=== PATIENT | male | born 1960 | race Caucasian/White ===

== ENCOUNTER → 2022-05-07 08:38 | Outpatient (BNVA) | payer OTHER, SELFPAY | PROVIDERS: Visit Provider Family Medicine | DX: E06.3 Autoimmune thyroiditis (principal); L40.9 Psoriasis, unspecified; Z76.89 Persons encountering health services in other specified circumstances; Z12.5 Encounter for screening for malignant neoplasm of prostate | CPT/HCPCS: 80053; 80061; 84153; 84439; 84443; 85025 ==

== ENCOUNTER → 2022-12-24 09:38 | Outpatient (BNVA) | payer OTHER, SELFPAY | PROVIDERS: Visit Provider Family Medicine | DX: L40.9 Psoriasis, unspecified (principal); Z12.11 Encounter for screening for malignant neoplasm of colon; E06.3 Autoimmune thyroiditis; Z79.620 Long term (current) use of immunosuppressive biologic | CPT/HCPCS: 80048; 84439; 84443; 84481; 85025 ==

== ENCOUNTER 2023-11-11 06:00 | Outpatient (CLI) | payer OTHER, SELFPAY | END 2023-11-11 06:01 | disposition home or self-care (01) | LOC: SLEEP 12-12 09:29 | PROVIDERS: PCP Family Medicine; Visit Provider Family Medicine | DX: E55.9 Vitamin D deficiency, unspecified (principal); L40.9 Psoriasis, unspecified; Z79.620 Long term (current) use of immunosuppressive biologic; I10 Essential (primary) hypertension; E06.3 Autoimmune thyroiditis; Z12.5 Encounter for screening for malignant neoplasm of prostate | CPT/HCPCS: 80053; 80061; 82306; 83721; 84439; 84443; 85025; G0103 ==

== ENCOUNTER → 2023-11-20 10:25 | Outpatient (BNVA) | payer OTHER, SELFPAY | PROVIDERS: PCP Family Medicine; Visit Provider Physician Assistant | DX: M25.551 Pain in right hip (principal); M70.61 Trochanteric bursitis, right hip | CPT/HCPCS: 73502 ==

== ENCOUNTER → 2023-11-25 08:48 | Outpatient (BNVA) | payer OTHER, SELFPAY | PROVIDERS: PCP Family Medicine; Visit Provider Family Medicine | DX: I10 Essential (primary) hypertension (principal); R79.89 Other specified abnormal findings of blood chemistry | CPT/HCPCS: 80053 ==

== ENCOUNTER → 2024-05-02 14:34 | Outpatient (BNVA) | payer OTHER, SELFPAY | PROVIDERS: PCP Family Medicine; Visit Provider Emergency Medicine | DX: M23.91 Unspecified internal derangement of right knee (principal) | CPT/HCPCS: 73562 ==

== ENCOUNTER 2024-05-12 14:53 | Outpatient (CLI) | payer OTHER, SELFPAY | END 2024-05-12 14:54 | disposition home or self-care (01) | LOC: SLEEP 14:54 | PROVIDERS: PCP Family Medicine; Visit Provider Family Medicine | DX: G47.33 Obstructive sleep apnea (adult) (pediatric) (principal); G47.36 Sleep related hypoventilation in conditions classified elsewhere | CPT/HCPCS: G0399 ==

== ENCOUNTER → 2024-06-25 08:36 | Outpatient (BNVA) | payer OTHER, SELFPAY | PROVIDERS: PCP Family Medicine; Visit Provider Family Medicine | DX: E78.5 Hyperlipidemia, unspecified (principal); E03.9 Hypothyroidism, unspecified | CPT/HCPCS: 80053; 80061; 84439; 84443 ==

== ENCOUNTER 2024-08-17 07:41 | Day surgery (SDC) | payer OTHER, SELFPAY ==
[2024-08-17 07:56] VITALS: BP 136/82; PULSE 64; RESP 16; TEMP 36.1; O2SAT 96
[2024-08-17] MEDS: sodium chloride 0.9% 1,000 ML 15 ML IV (08:09)
--- NOTE | 2024-08-17 08:10 | ANES.PREANE2 ---
Pre-Anesthetic Assessment Height/Weight: Height 1.78 m Weight 113.398 kg Temp Pulse Resp BP Pulse Ox O2 Del Method 97.0 F L 64 16 136/82 96 Room Air 08/17/24 07:56 08/17/24 07:56 08/17/24 07:56 08/17/24 07:56 08/17/24 07:56 08/17/24 07:56 Preop Diagnosis: Screen Operation Date: 08/17/24 09:00 Proposed Procedures p Colonoscopy 31623, G0121, Z12.11(Not Applicable) - Francois Washington MD Familial anesthetic complications: none Was Beta Rodolfo taken within 24 hours: N/A Was Clonidine taken within 24 hours: N/A Last intake: Intake Last Liquid Date 08/16/24 Last Liquid Time 20:00 Last Solid Date 08/15/24 Last Solid Time 18:30 Social Alcohol (1-2/month) and No tobacco Exam alert, oriented x 3, clear to auscultation bilaterally and regular rate & rhythm Airway Cervical ROM: within normal limits Mallampati: Class II Dentition: full Pulmonary Sleep Apnea CV/HEM Hypertension None reported Hepatic None reported GI None reported Metabolic Morbid Obesity and Thyroid Disease (hypothyroid) Musc/skel psoriasis Neuropsych None reported Anesthetic Plan ASA status: 2 Anesthesia: MAC Risk of > 500 ml blood loss (7ml/kg in children): No Medications/Allergies Home Medications ?Medication ?Instructions ?Recorded ?Confirmed ?Last Taken ?Type betamethasone dipropionate 0.05 % 1 applic topical DAILY PRN skin 12/24/22 08/12/24 Unknown Rx topical cream irritation #45 grams amlodipine 10 mg tablet 10 mg PO DAILY #90 tabs 11/11/23 08/12/24 08/17/24 Rx CPAP 6-16 cm mmHg setting with #1 ea 06/25/24 07/09/24 Unknown Rx mask, tubing and supplies levothyroxine 25 mcg tablet 25 mcg PO DAILY #90 tabs 06/28/24 08/12/24 08/17/24 Rx adalimumab 40 mg/0.8 mL 40 mg SUBCUT .[id number] 08/12/24 08/12/24 07/30/24 History subcutaneous syringe kit (Humira) Allergies Allergy/AdvReac Type Severity Reaction Status Date / Time No Known Allergies Allergy Verified 08/12/24 08:15 Current Medications Generic Name Dose Route Start Last Admin Trade Name Freq PRN Reason Stop Dose Admin Sodium Chloride 1,000 mls @ 15 mls/hr 08/17/24 07:44 08/17/24 08:09 Sodium Chloride 0.9% IV 08/18/24 07:43 15 mls/hr .Q24H PRN Administration COLONOSCOPY FLUIDS PFSH Anesthesia Medical History Hyperlipidemia Obesity, Class II, BMI 35-39.9 Psoriasis Sleep apnea Trochanteric bursitis of right hip Acquired hypothyroidism Preston's disease Essential hypertension Adalimumab (Humira) long-term use Family History Father Hypothyroidism Heart disease Mother Hypothyroidism Heart disease Social History Smoking and tobacco/nicotine status: never used tobacco/nicotine Second hand smoke exposure: No Alcohol intake: current Alcohol intake frequency: holidays/special occasions only Substance/Drug Use: never Adopted: No Caregiver/support person: No Lives independently: No Household members: spouse Marital status: Number of children: 1 Highest education level completed: Professional Degree (MD, DO, KORTNEY, DVM, DDS, DPM, etc) service: No Current occupational status: employed Current occupational exposures/hazards: No Pets and animals: No
--- NOTE | 2024-08-17 09:00 | W.PM.OPSFHP ---
Same Day Surgery H&P Indication for Procedure/HPI DATE OF PROCEDURE: August 17, 2024 CHIEF COMPLAINT/INDICATIONFOR SURGICAL PROCEDURE: screening colonoscopy PREOP DIAGNOSIS: Screening colonoscopy PLANNED PROCEDURE: Operation Date: 08/17/24 09:00 Proposed Procedures p Colonoscopy 32460, G0121, Z12.11(Not Applicable) - Francois Washington MD Medications/Allergies* Home Medications ?Medication ?Instructions ?Recorded ?Confirmed ?Type adalimumab 40 mg/0.8 mL 40 mg SUBCUT .S2BABRT 08/12/24 08/12/24 History subcutaneous syringe kit (Humira) Allergies/Adverse Reactions Allergy/AdvReac Type Severity Reaction Status Date / Time No Known Allergies Allergy Verified 08/12/24 08:15 Current Medications: Generic Name Dose Route Start Last Admin Trade Name Freq PRN Reason Stop Dose Admin Sodium Chloride 1,000 mls @ 15 mls/hr 08/17/24 07:44 08/17/24 08:09 Sodium Chloride 0.9% IV 08/18/24 07:43 15 mls/hr .Q24H PRN Administration COLONOSCOPY FLUIDS Pertinent History/Comorbid Conditions* Medical History (Updated 06/25/24 @ 08:30 by Vaughn Major MD) Hyperlipidemia Obesity, Class II, BMI 35-39.9 Psoriasis Sleep apnea Trochanteric bursitis of right hip Acquired hypothyroidism Preston's disease Essential hypertension Adalimumab (Humira) long-term use Family History (Updated 06/25/24 @ 08:02 by Eugenio Maynard LPN) Heart disease Father Mother Hypothyroidism Father Mother Social History Smoking and tobacco/nicotine status: never used tobacco/nicotine Second hand smoke exposure: No Alcohol intake: current Alcohol intake frequency: holidays/special occasions only Substance/Drug Use: never Adopted: No Caregiver/support person: No Lives independently: No Household members: spouse Marital status: Number of children: 1 Highest education level completed: Professional Degree (MD, DO, KORTNEY, DVM, DDS, DPM, etc) service: No Current occupational status: employed Current occupational exposures/hazards: No Pets and animals: No Pertinent Exam Findings alert, oriented x 3, clear to auscultation bilaterally, regular rate & rhythm and procedure specific exam findings abdomen soft, nt, nd Recommendations Risks and benefits of procedure reviewed Surgery/Procedure today Other Plans: Colonoscopy today Coding Level of Care Code Acute Code for Chg Fwd
[2024-08-17 09:28] VITALS: BP 133/68; PULSE 64; RESP 18; TEMP 36.4; O2SAT 92
[2024-08-17 09:37] VITALS: BP 139/78; PULSE 66; RESP 18; O2SAT 97
--- NOTE | 2024-08-17 09:48 | ANE.PACU2 ---
Inpatient post-anesthesia follow up: Airway intact: Yes Vital signs: Temperature 97.6 F Pulse Rate 66 Respiratory Rate 18 Blood Pressure 139/78 Pulse Oximetry 97 Oxygen Delivery Me thod Room Air Oxygen Flow Rate Fraction of Inspir ed Oxygen Hydration adequate: Yes Nausea and vomiting: No Pain level: 1 Mental status: Baseline
== END 2024-08-17 09:48 | disposition home or self-care (01) ==
PROVIDERS: PCP Family Medicine; Visit Provider Student in an Organized Health Care Education/Training Program
PROC: 0DJD8ZZ Inspection of Lower Intestinal Tract, Via Natural or Artificial Opening Endoscopic (ICD-10-PCS; CPT 45378; principal; 2024-08-17 09:00)
DX: Z12.11 Encounter for screening for malignant neoplasm of colon (principal); I10 Essential (primary) hypertension; E78.5 Hyperlipidemia, unspecified; E06.3 Autoimmune thyroiditis; E03.9 Hypothyroidism, unspecified; E66.812 Obesity, class 2; E66.01 Morbid (severe) obesity due to excess calories; Z68.35 Body mass index [BMI] 35.0-35.9, adult; Z79.899 Other long term (current) drug therapy; Z79.890 Hormone replacement therapy; Z79.620 Long term (current) use of immunosuppressive biologic
CPT/HCPCS: 45378; J2704; J7030

== ENCOUNTER → 2024-10-05 07:29 | Outpatient (BNVA) | payer MEDICARE, OTHER, SELFPAY | PROVIDERS: PCP Family Medicine; Visit Provider Nurse Practitioner | DX: M25.551 Pain in right hip (principal); M70.61 Trochanteric bursitis, right hip; M16.11 Unilateral primary osteoarthritis, right hip | CPT/HCPCS: 20610; 73502; 99204; J1100; J2795; J3301; J9999 ==

== ENCOUNTER → 2025-01-21 07:55 | Outpatient (BNVA) | payer MEDICARE, OTHER, SELFPAY | PROVIDERS: PCP Family Medicine; Visit Provider Nurse Practitioner | DX: M16.11 Unilateral primary osteoarthritis, right hip (principal); M70.61 Trochanteric bursitis, right hip | CPT/HCPCS: 99213 ==

== ENCOUNTER → 2025-01-28 12:40 | Outpatient (BNVA) | payer MEDICARE, OTHER, SELFPAY | PROVIDERS: PCP Family Medicine; Visit Provider Specialist | DX: M16.11 Unilateral primary osteoarthritis, right hip (principal); M70.61 Trochanteric bursitis, right hip | CPT/HCPCS: 20610; 77002; J1100; J2795; J3301; J9999 ==

== ENCOUNTER → 2025-02-11 13:17 | Outpatient (BNVA) | payer MEDICARE, OTHER, SELFPAY | PROVIDERS: PCP Family Medicine; Visit Provider Family Medicine | DX: R60.0 Localized edema (principal) | CPT/HCPCS: 80053; 84439; 84443 ==

== ENCOUNTER → 2025-03-04 12:02 | Outpatient (BNVA) | payer MEDICARE, SELFPAY | PROVIDERS: PCP Family Medicine; Visit Provider Nurse Practitioner | DX: M70.61 Trochanteric bursitis, right hip (principal); M16.11 Unilateral primary osteoarthritis, right hip | CPT/HCPCS: 99213 ==